=== PATIENT | female | born 1985 | race Caucasian/White ===

== ENCOUNTER 2025-06-09 10:01 | Emergency (ER) | payer OTHER, SELFPAY ==
[2025-06-09 10:15] VITALS: BP 111/79
--- NOTE | 2025-06-09 10:51 | ED.GENMED ---
History of Present Illness
General
Chief Complaint: Rabies
Source: patient
Time Seen by Provider: 06/09/25 10:30
History of Present Illness
History of Present Illness:
40-year-old female presenting to the ER for rabies vaccine. Patient and family were exposed to a bat that was tested by animal control with rabies testing, inconclusive. They note that they were treated for rabies in the past approximately 7 years
ago. Patient is without complaints at this time.
Past History
Past History
ED Past Medical History: None
ED Past Surgical History: None
Social History
Tobacco: Non-smoker
Alcohol: None
Drug: None
Personal:
Living: with family
Review of Systems
Review of Systems
All Other Systems: ROS reviewed and negative except as documented in HPI and ROS
Phy Exam
Physical Exam
Physical Exam:
GENERAL: Alert , in no apparent distress
EYE: conjunctiva clear
Head: Normocephalic atraumatic
NECK: Supple,
ENT: mmm.
LUNGS: no acute respiratory distress
NEUROLOGICAL: Alert and oriented
SKIN: Warm and dry, skin intact.
MUSCULOSKELETAL: well perfused.
PSYCH: Normal and appropriate interaction.
Scores
Heart Failure Risk
Heart Failure Risk Score: Not Applicable
Heart Score for Chest Pain Patients
STEMI patient?: Not applicable
Withdrawal Assessment of Alcohol
Withdrawal Assessment Completed?: Not applicable
Course
Orders/Labs/Results
Orders:
Orders
06/09/25 11:15
Rabies Vaccine (Pcec)/Pf [Rabavert Rabies Vacc W-Diluent] 2.5 unit IM .ONCE ONE
Vital Signs
Initial and Last Documented VS:
Initial Vital Signs
Temp Pulse Resp BP Pulse Ox
98.3 F 82 16 111/79 98
06/09/25 10:15 06/09/25 10:15 06/09/25 10:15 06/09/25 10:15 06/09/25 10:15
Last Documented Vital Signs
Temp Pulse Resp BP Pulse Ox
98.3 F 82 16 111/79 98
06/09/25 10:15 06/09/25 10:15 06/09/25 10:15 06/09/25 10:15 06/09/25 10:53
MDM/Problems Addressed
MDM/Problems Addressed:
Risk first benefit of vaccine administration discussed with patient and family and they are ultimately in agreement with being treated. Given that they were already treated for rabies in the past they will only need booster vaccines today and in 3
days. Patient aware of return precautions. Stable for discharge.
*Pulse Oximetry
SaO2: 98
Oxygen Mode of Delivery: Room air
Patient hypoxic: no
*Critical Care Note
Total Time (30-74mins, 75-104mins- exclusive of procedures): Not Applicable
ED Attending Note
-
Portions of this chart may have been created with voice recognition software.� Occasional wrong word or��sound alike� substitutions may have occurred due to the inherent limitations of voice recognition software.
Discharge Plan
Departure
Patient Disposition: Home (Routine Discharge)
Date of Disposition: 06/09/25
Time of Disposition: 10:51
Patient with high blood pressure during this ER visit?: No
Discharge Problem:
Encounter for immunization
Instructions: Rabies
Prescriptions:
No Action
nitrofurantoin monohyd/m-cryst 100 MG capsule
100 mg PO BID Qty: 10 0RF
doxycycline hyclate 100 MG capsule
100 mg PO Q12 Qty: 28 0RF
Referrals:
Miko Ronquillo MD [Family Provider, Family Practice]
Stand Alone Forms: Rabies Vaccine Post Exp Dosing
Interventions
Interventions:
*Risk Screen - Suicide Last Done: 06/09/25 10:15
*General Assessment Last Done: 06/09/25 11:12
*Neglect/Abuse Screening Last Done: 06/09/25 10:15
*ED- Fall Risk Assessment Last Done: 06/09/25 11:07
*ED COVID-19 Vaccine History Last Done: 06/09/25 11:07
*Nursing Disposition Last Done: 06/09/25 11:12
Discharge Date and Time
Print Language: MICRONESIAN
[2025-06-09] MEDS: RABAVERT RABIES VACC W-DILUENT 2.5 UNIT IM (11:40)
== END 2025-06-09 11:47 | disposition home or self-care (01) ==
LOC: EMR 10:01
PROVIDERS: EMERGENCY PHYSICIAN Emergency Medicine; FAMILY PHYSICIAN Family Medicine
DX: Z20.3 Contact with and (suspected) exposure to rabies (principal); Z23 Encounter for immunization
CPT/HCPCS: 99281; 90471; 90675

== ENCOUNTER 2025-06-12 11:33 | Outpatient (RCR) | payer OTHER, SELFPAY ==
[2025-06-12 12:01] VITALS: BP 106/70
[2025-06-12] MEDS: RABAVERT RABIES VACC W-DILUENT 2.5 UNIT IM (12:19)
== END 2025-06-13 08:08 | disposition home or self-care (01) ==
LOC: OID 11:33
PROVIDERS: ATTENDING PHYSICIAN Emergency Medicine
DX: Z20.3 Contact with and (suspected) exposure to rabies (principal); Z23 Encounter for immunization
CPT/HCPCS: 90471; 90675

== ENCOUNTER 2025-06-19 20:32 | Emergency (ER) | payer OTHER, SELFPAY ==
[2025-06-19 20:38] VITALS: BP 140/86
[2025-06-19 21:13] LABS: Hematocrit 37.5 % (37.0-47.0); Hemoglobin 12.4 g/dL (12.0-16.0); Mean Corp Hgb Conc. 33.1 g/dL (33.0-37.0); Mean Corpuscular Volume 92.4 fL (81.0-99.0); Nucleated Red Blood Cells % 0 %; Platelet Count 250 10^3/uL (130-400); Red Cell Dist. Width 12.9 % (11.5-14.5)
[2025-06-19 21:18] LABS: ALT (SGPT) 15 U/L (0-35); AST (SGOT) 19 U/L (14-36); Albumin 4.7 g/dl (3.5-5.0); Alkaline Phosphatase 36 U/L (38-126); Blood Urea Nitrogen 11 mg/dl (7-17); Calcium 9.2 mg/dl (8.4-10.2); Carbon Dioxide 27 mmol/L (22-30); Chloride 106 mmol/L (98-107); Glucose 125 mg/dl (70-99); Potassium 3.9 mmol/L (3.5-5.1); Sodium 140 mmol/L (135-145); Total Protein 7.6 g/dl (6.3-8.2); eGFR > 60.00
[2025-06-19 22:34] VITALS: BMI 29.3
[2025-06-19 23:00] VITALS: BP 121/65
--- NOTE | 2025-06-19 23:22 | ED.GENMED ---
History of Present Illness
<Kirk Thomas MD, Resident - Last Filed: 06/20/25 16:05>
General
Chief Complaint: Abdominal Symptoms
Source: patient
Time Seen by Provider: 06/19/25 23:01
Travel History
Have you traveled to any high risk areas for coronavirus over the past 14 days?: No
Have you had any contact with someone who has COVID-19?: No
History of Present Illness
History of Present Illness:
Maddy is a 40-year-old female with chronic constipation and external hemorrhoids who presents to the ED after 3 episodes of painless bleeding associated with bowel movements in the past 24 hours. She states that she has had over a 20+ year history
of patient with 1 bowel movement per week. She follows with GI specialist here and has an appointment with them in 3 weeks. Maddy states that Thursday around 3 AM, she woke up feeling like she had to have a bowel movement. She reports having to
strain a lot and when she went to wipe she noticed bright red blood on the toilet paper and in the toilet water. She reports a second episode a few hours later, this time with a lot of jellylike blood clots. She states that last night she had
another formed stool, however this time there was no blood. Tonight, she had another bowel movement with blood on wiping and in toilet. She states that these are painless episodes, unlike her bleeding episodes associated with external hemorrhoids.
She reports feeling a little nervous about seeing all the blood and calling her PCP, who suggested that she go to the ED to rule out anything serious. Of note, Maddy does not follow any medical bowel regiment. She takes probiotic twice daily, is
reducing her caffeine, increasing her water, and performed a 'cleanse' in alignment with recommendations from her GI doctor back in August. She states that doing all of this initially made her more regular (bowel movement every 2 days), however
it did not last long. She denies pain, fevers/chills, nausea, vomiting, changes in diet, recent infection, recent travel, or any other symptoms.
Past History
<Kirk Thomas MD, Resident - Last Filed: 06/20/25 16:05>
Past History
ED Past Medical History: None
ED Past Surgical History: None
Social History
Tobacco: Non-smoker
Alcohol: None
Drug: None
Personal:
Living: with family
Family History
Family History: Other (Father with colitis, states her paternal side of the family has a lot of Crohn's/IBD)
Review of Systems
<Kirk Thomas MD, Resident - Last Filed: 06/20/25 16:05>
Review of Systems
Allergies reviewed?: Yes
Phy Exam
<Kirk Thomas MD, Resident - Last Filed: 06/20/25 16:05>
General Physical Exam
General Presentation: well appearing and no apparent distress
General Skin: warm and dry
General Habitus: normal
General Mental: alert
General Hydration: appears well hydrated
Cardiovascular Exam
Cardiovascular Exam: regular rate/rhythm, no edema and no murmur
Pulmonary Exam
Pulmonary Exam: lungs clear and no respiratory distress
Gastrointestinal Exam
Gastrointestinal Exam: normal bowel sounds, non tender, soft and non distended
Rectal Exam: hemorrhoids (External, noninflamed and internal by feel. Gloved finger comes back blood-tinged.)
Course
<Kirk Thomas MD, Resident - Last Filed: 06/20/25 16:05>
Orders/Labs/Results
Orders:
Orders
06/19/25 20:50
CMP [Comprehensive Metabolic Panel] Urgent
Complete Blood Count/With Diff Urgent
06/20/25
CT Abd/pelvis W Iv Cont Urgent
Reason For Exam: acute rectal bleeding x 2 days
06/20/25 01:44
Anusol Hc Suppository [Anusol Hc] 25 mg RECTAL NOW STA
Abnormal Lab Results
06/19/25
20:50
RBC 4.06 L 10^6/uL
(4.20-5.40)
Absolute Monos (auto) 0.8 H 10^3/uL
(0.1-0.6)
Glucose 125 H mg/dl
(70-99)
Alkaline Phosphatase 36 L U/L
(38-126)
06/19/25 20:50
06/19/25 20:50
Vital Signs
Initial and Last Documented VS:
Initial Vital Signs
Temp Pulse Resp BP Pulse Ox
98.2 F 98 18 140/86 98
06/19/25 20:38 06/19/25 20:38 06/19/25 20:38 06/19/25 20:38 06/19/25 20:38
Last Documented Vital Signs
Temp Pulse Resp BP Pulse Ox
98.2 F 98 18 121/65 98
06/19/25 20:38 06/19/25 20:38 06/19/25 20:38 06/19/25 23:00 06/19/25 23:35
Nilsonlt;Hien Tapia, DO - Last Filed: 06/20/25 02:06>
Orders/Labs/Results
Orders:
Orders
06/19/25 20:50
CMP [Comprehensive Metabolic Panel] Urgent
Complete Blood Count/With Diff Urgent
06/20/25
CT Abd/pelvis W Iv Cont Urgent
Reason For Exam: acute rectal bleeding x 2 days
06/20/25 01:44
Anusol Hc Suppository [Anusol Hc] 25 mg RECTAL NOW STA
Abnormal Lab Results
06/19/25
20:50
RBC 4.06 L 10^6/uL
(4.20-5.40)
Absolute Monos (auto) 0.8 H 10^3/uL
(0.1-0.6)
Glucose 125 H mg/dl
(70-99)
Alkaline Phosphatase 36 L U/L
(38-126)
06/19/25 20:50
06/19/25 20:50
Vital Signs
Initial and Last Documented VS:
Initial Vital Signs
Temp Pulse Resp BP Pulse Ox
98.2 F 98 18 140/86 98
06/19/25 20:38 06/19/25 20:38 06/19/25 20:38 06/19/25 20:38 06/19/25 20:38
Last Documented Vital Signs
Temp Pulse Resp BP Pulse Ox
98.2 F 98 18 121/65 98
06/19/25 20:38 06/19/25 20:38 06/19/25 20:38 06/19/25 23:00 06/19/25 23:35
<Kirk Thomas MD, Resident - Last Filed: 06/20/25 16:05>
MDM/Problems Addressed
Differential Diagnosis Includes:
Internal hemorrhoids
AVM
Colon polyps
Diverticular bleed
MDM/Problems Addressed:
Maddy is a 40-year-old female with chronic constipation and external hemorrhoids who presents to the ED after 3 episodes of painless bleeding associated with bowel movements in the past 24 hours. Rectal exam significant for blood-tinged gloved
finger and noninflamed external hemorrhoids. The most likely etiology of her presentation is internal hemorrhoids.
CT A/P:
1. No acute intra-abdominal process identified.
2. Right middle lobe incidental 2 mm nodular opacity. Given the size, likely to have a benign etiology. If there are risk factors, consider follow-up scan in 12 months as below.
#Painless bleeding associated with bowel movement, likely secondary to internal hemorrhoids
#Chronic constipation
- CT A/P as above
- Start Anusol suppositories and Metamucil on discharge
- Outpatient follow-up with GI
--Will likely need outpatient colonoscopy (last one was in her 20s and unremarkable)
Chronic conditions affecting care: Other (Chronic constipation, external hemorrhoids)
<Kirk Thomas MD, Resident - Last Filed: 06/20/25 16:05>
*Pulse Oximetry
SaO2: 98
Oxygen Mode of Delivery: Room air
<Hien Tapia DO - Last Filed: 06/20/25 02:06>
*Radiology
Radiology exam reviewed: radiology read reviewed
*Pulse Oximetry
Patient hypoxic: no
*Critical Care Note
Total Time (30-74mins, 75-104mins- exclusive of procedures): Not Applicable
ED Attending Note
<Kirk Thomas MD, Resident - Last Filed: 06/20/25 16:05>
-
Portions of this chart may have been created with voice recognition software.� Occasional wrong word or��sound alike� substitutions may have occurred due to the inherent limitations of voice recognition software.
<Hien Tapia DO - Last Filed: 06/20/25 02:06>
ED Attending Note
Patient seen and examined by attending physician: Yes
I performed a history and physical exam of patient and discussed management with resident, I reviewed resident's note and agree with documented findings and plan of care.: Yes
ED Attending Note:
40-year-old woman with no significant past medical history save for chronic constipation. She generally passes bowel movements once per week, 2-3 bowel movements on that day. 1-1/2 days ago she admits to significant straining to pass a bowel
movement and then did eventually pass a normal soft to firm stool then noticed bright red blood in the toilet and bright red blood when wiping. She has a history of external hemorrhoids but denies rectal nor anal pain, denies anal irritation nor
inflammation of external hemorrhoids.
She had similar firm bowel movement streaked with bright red blood and blood in the toilet later that same day and then again today. In between she did pass a normal bowel movement this morning without notable blood.
She denies abdominal pain or cramping, no dizziness nor lightheadedness. No history of similar episodes in the past.
She takes no anticoagulants.
Last menstrual period 3 weeks ago, normal and on time.
She does follow with [facility] with an initial appointment August 2024. At that time was recommended to start a fiber supplement versus MiraLAX for chronic constipation. Instead patient has been attempting high-fiber diet and has been taking
a probiotic.
She has a follow-up appointment scheduled with GI end of June.
She reports undergoing unremarkable colonoscopy in her 20s. This was done due to chronic constipation and her father has history of colitis.
40-year-old woman appears her stated age, bright alert, pleasant, appears in no acute distress. Reading a book.
Skin is warm and dry, normal color.
Abdomen is soft without appreciable tenderness. No palpable masses.
Rectal exam reveals few small noninflamed, nonbleeding external hemorrhoids. Mild to moderate bogginess posterior rectal region with scant bright red blood per rectal vault that is heme positive.
Differential includes: Bleeding internal hemorrhoids,, AVM, colon polyp, diverticular bleed.
Overall well in appearance.
Labs are unremarkable, within normal limits and nothing in history nor exam to suggest acute blood loss anemia. Symptomatic anemia.
There is also reassuring that she has had no abdominal pain, no diarrhea. Inflammatory bowel disease, colitis or also in the differential but less likely.
Will check CT abdomen pelvis.
If unremarkable we will plan to initiate a course of Anusol suppositories for what I suspect is rectal bleeding related to internal hemorrhoids.
02:00
CT abdomen pelvis is unremarkable.
Patient resting comfortably. No episodes of rectal bleeding since arrival.
Abdomen remains soft without appreciable tenderness.
Will discharge to home with prescription for Anusol suppositories and recommend she increase fiber in her diet, start a fiber supplement such as Metamucil versus Benefiber.
Avoid straining at stool.
Prompt follow-up with GI for recheck/further evaluation.
Return precautions discussed.
Discharge Plan
Departure
Patient Disposition: Home (Routine Discharge)
Date of Disposition: 06/20/25
Time of Disposition: 02:04
Patient with high blood pressure during this ER visit?: No
Condition: Good
Discharge Problem:
Bright red rectal bleeding
Instructions: Constipation in adults - ED (DC), Bloody stools in adults - ED (DC)
Prescriptions:
New
hydrocortisone acetate [Anucort-HC] 25 mg suppository
25 mg NC BID Qty: 12 0RF
Referrals:
Susan Candelaria DO [Active, Gastroenterology] - Call in 1-3 days for appt
Referral Note: Follow-up with your continuous miner for further evaluation and treatment.
Interventions
Interventions:
*Risk Screen - Suicide Last Done: 06/19/25 20:38
*General Assessment Last Done: 06/19/25 20:38
*Neglect/Abuse Screening Last Done: 06/19/25 20:38
*ED- Fall Risk Assessment Last Done: 06/19/25 20:38
*ED COVID-19 Vaccine History Last Done: 06/19/25 20:38
*Nursing Disposition Last Done: 06/20/25 03:38
GQ-Sdyxen-Insfpxawfn Assessment Last Done: 06/19/25 23:02
Discharge Date and Time
Discharge Date/Time: 06/20/25 02:38
Print Language: GEORGIAN
[2025-06-20] MEDS: ANUSOL HC 25 MG RECTAL (01:56)
== END 2025-06-20 02:38 | disposition home or self-care (01) ==
LOC: EMR 20:32
PROVIDERS: Emergency Medicine; EMERGENCY PHYSICIAN Emergency Medicine; FAMILY PHYSICIAN Family Medicine
DX: K62.5 Hemorrhage of anus and rectum (principal); K64.4 Residual hemorrhoidal skin tags
CPT/HCPCS: 99284; 74177; 80053; 85025; Q9967

== ENCOUNTER 2025-10-25 06:24 | Day surgery (SDC) | payer OTHER, SELFPAY | END 2025-10-25 09:21 | disposition home or self-care (01) | LOC: GI 06:24 | PROVIDERS: ATTENDING PHYSICIAN Internal Medicine | DX: K62.5 Hemorrhage of anus and rectum (principal); K64.8 Other hemorrhoids; D12.0 Benign neoplasm of cecum | CPT/HCPCS: 45385; 88305 ==